=== PATIENT | male | born 1945 | race Hispanic/Latino ===

== ENCOUNTER 2016-10-19 21:34 | Emergency (ER) | payer BC ==
[2016-10-19 21:51] VITALS: BP 149/88; PULSE 90; RESP 18; TEMP 98.4; O2SAT 97
[2016-10-19] MEDS ORDERED: Sodium Chloride 0.9% 1,000 ML IV STA (22:02)
--- NOTE | 2016-10-19 22:06 | ED PDOC ---
HPI: General Adult Time Seen by Provider: 10/19/16 22:04 Chief Complaint (Nursing): Flu-like Symptoms Chief Complaint (Provider): flu-like symptoms History Per: Patient (71 y/o male here with nasal congestion/cough/sore throat bodyaches x 3 days. NOtes sob associated with nasal congestion. Denies any fevers/chills. Has taken flonase without relief. H/o pneumonia in past. Has HTN but otherwise denies h/o asthma/copd/chf.) Past Medical History Reviewed: Historical Data, Nursing Documentation, Vital Signs Vital Signs: Last Vital Signs Temp 98.4 F 10/19/16 21:46 Pulse 90 10/19/16 21:46 Resp 18 10/19/16 21:46 BP 149/88 10/19/16 21:46 Pulse Ox 97 10/19/16 22:05 - Medical History PMH: HTN - Family History Family History: States: No Known Family Hx - Home Medications Home Medications: Ambulatory Orders Medication Instructions Recorded Lisinopril 12.5 mg PO DAILY 11/12/14 Azithromycin [Zithromax Z-José Antonio] 250 mg PO DAILY #1 packet 11/13/14 Guaifenesin/Codeine Phosphate 5 ml PO TID PRN #1 bottle 11/13/14 [Codeine-Guaifenesin 10 mg/5 ml-100 mg/5 ml 12] Azithromycin [Zithromax] 1 tab PO DAILY #6 tab 10/19/16 Promethazine/Codeine 5 ml PO Q12 PRN #100 ml 10/19/16 [Codeine/Promethazine 10 MG/5 Ml-6.25 MG/5 Ml] - Allergies Allergies/Adverse Reactions: Allergies Allergy/AdvReac Type Severity Reaction Status Date / Time No Known Allergies Allergy Verified 11/12/14 21:37 Review of Systems ROS Statement: Except As Marked, All Systems Reviewed And Found Negative ENT: Positive for: Nose Congestion Respiratory: Positive for: Cough, Shortness of Breath Physical Exam - Reviewed Nursing Documentation Reviewed: Yes Vital Signs Reviewed: Yes - Physical Exam Appears: Positive for: Well, Non-toxic, No Acute Distress Head Exam: Positive for: ATRAUMATIC, NORMAL INSPECTION, NORMOCEPHALIC Skin: Positive for: Normal Color, Warm, DRY Eye Exam: Positive for: EOMI, Normal appearance, PERRL ENT: Positive for: Normal ENT Inspection, Nasal Congestion Neck: Positive for: Normal, Painless ROM Cardiovascular/Chest: Positive for: Regular Rate, Rhythm Respiratory: Positive for: CNT, Normal Breath Sounds Gastrointestinal/Abdominal: Positive for: Normal Exam, Bowel Sounds, Soft Back: Positive for: Normal Inspection Extremity: Positive for: Normal ROM Neurologic/Psych: Positive for: Alert, Oriented - Laboratory Results Result Diagrams: 10/19/16 22:55 10/19/16 22:55 - ECG O2 Sat by Pulse Oximetry: 97 - Progress ED Course And Treament: FLU/STREP NEG NS 1 LITER 500 ML PER HOUR EKG NSR 82BPM; NO ECTOPY NO ACUTE CHANGES Disposition - Clinical Impression Clinical Impression: Sinusitis - Patient ED Disposition Is Patient to be Admitted: No - Disposition Disposition: Routine/Home Disposition Time: 23:36 Condition: FAIR Prescriptions: Promethazine/Codeine [Codeine/Promethazine 10 MG/5 Ml-6.25 MG/5 Ml] 5 ml PO Q12 PRN #100 ml PRN Reason: Cough Azithromycin [Zithromax] 1 tab PO DAILY #6 tab Instructions: Acute Bronchitis (ED), Upper Respiratory Infection (ED)
[2016-10-19 23:21] LABS: BASO # 0.1 K/uL (0.0-0.2); BASO % 0.8 % (0.0-2.0); EOS # 0.5 K/uL (0.0-0.7); HEMATOCRIT 40.6 % (35.0-51.0); LYMPH # 2.8 K/uL (1.0-4.3); LYMPH % 33.7 % (20.0-40.0); MEAN CELL VOLUME 91.6 fl (80.0-94.0); MEAN CORPUSCULAR HEMOGLOBIN 31.4 pg (27.0-31.0); MEAN CORPUSCULAR HGB CONC 34.2 g/dL (33.0-37.0); MEAN PLATELET VOLUME 7.8 fl (7.2-11.7); MONO # 1.2 K/uL (0.0-0.8); MONO % 14.1 % (0.0-10.0); NEUT # 3.8 K/uL (1.8-7.0); NEUT % 45.4 % (50.0-75.0); NRBC % 0.2 % (0.0-0.0); RED CELL DISTRIBUTION WIDTH 13.4 % (11.5-14.5); WHITE BLOOD COUNT 8.4 K/uL (4.8-10.8)
[2016-10-19 23:26] LABS: ALB/GLOB RATIO 1.2 (1.0-2.1); ALKALINE PHOSPHATASE 55 U/L (38-126); ALT/SGPT 30 U/L (21-72); AST/SGOT 26 U/L (17-59); BILIRUBIN,TOTAL 0.5 mg/dl (0.2-1.3); BLOOD UREA NITROGEN 22 mg/dl (9-20); CALCIUM 9.1 mg/dL (8.4-10.2); CARBON DIOXIDE 27 mmol/L (22-30); CHLORIDE 105 mmol/L (98-107); GFR AFRICAN-AMERICAN > 60; GLUCOSE,RANDOM 96 mg/dL (75-110); POTASSIUM 3.6 MMOL/L (3.6-5.0); SODIUM 144 mmol/l (132-148); TOTAL PROTEIN 7.1 G/DL (6.3-8.2)
--- NOTE | 2016-10-20 08:44 | RAD ---
HISTORY: cough COMPARISON: 11/12/2014 TECHNIQUE: Chest PA and lateral FINDINGS: LUNGS: No focal airspace opacity. PLEURA: No significant pleural effusion identified. No pneumothorax apparent. CARDIOVASCULAR: Normal. OSSEOUS STRUCTURES: The osseous structures demonstrate degenerative changes. VISUALIZED UPPER ABDOMEN: Normal. OTHER FINDINGS: None. IMPRESSION: No focal airspace opacity. No significant interval change. Please note that chest radiographs have low sensitivity for small pulmonary nodules.
--- NOTE | 2016-10-20 09:03 | CARD ---
APPROVED REPORT EKG Measurement Heart [id number] <Conclusion> Normal sinus rhythm Nonspecific T wave abnormality Abnormal ECG
== END 2016-10-20 00:29 | disposition home or self-care (01) ==
LOC: H.ER 21:34
DX: J32.9 Chronic sinusitis, unspecified (principal); J02.9 Acute pharyngitis, unspecified; I10 Essential (primary) hypertension; R05 Cough; R06.02 Shortness of breath
CPT/HCPCS: 71020; 80053; 85025; 87070; 87430; 87804; 93005; 96360; 96361; 96374; 99282; J1885; J7040